=== PATIENT | female | born 1985 | race Caucasian/White ===

== ENCOUNTER 2025-05-22 00:11 | Emergency (ER) | payer SELFPAY ==
[~2025-05-22] VITALS: Ht 157.5 cm; Wt 65.8 kg
[2025-05-22 00:29] VITALS: BP 125/82; TEMP 98.7; O2SAT 100
[2025-05-22] MEDS ORDERED: dexaMETHasone SOD PHOSPHATE 1 ML ONE (00:37)
[2025-05-22] MEDS: dexaMETHasone SOD PHOSPHATE 4 MG/ML VIAL IM ONE (00:41)
== END 2025-05-22 01:23 | disposition home or self-care (01) ==
LOC: ER 00:20
DX: T78.3XXA Angioneurotic edema, initial encounter (principal); Z60.2 Problems related to living alone; Y92.89 Other specified places as the place of occurrence of the external cause
CPT/HCPCS: 99283; 96372; J1100